=== PATIENT | female | born 1960 | race Caucasian/White ===

== ENCOUNTER → 2018-04-30 | Outpatient (CLI) | payer OTHER ==
[~2018-04-30] MED LIST: FLUT16SP19 NS; IBUP-56 PO; LEVO137T23 PO; LISI-351 PO; MULT-770 PO; NAPR220C12 PO; OMEG300C PO; mucinex
--- NOTE | 2018-05-01 16:42 | RADIOLOGY IMAGING REPORT ---
FACILITY: [facility] PATIENT NAME: VALERIE PINEDA : [id number] MR: [id number]: [id number] EXAM DATE: [id number] ORDERING PHYSICIAN: ARJUN SPENCER TECHNOLOGIST: Delilah Cruz PROCEDURE:BILATERAL DIGITAL SCREENING MAMMOGRAM WITH CAD ASSISTED INTERPRETATION & 3D TOMOSYNTHESIS COMPARISON:Prior mammograms 04/10/17, 03/18/16, 03/13/15, 03/07/14. INDICATIONS:SCREENING FINDINGS: A small amount of fibroglandular tissue is seen throughout the breasts. The parenchymal pattern has remained stable allowing for difference in mammographic technique & patient positioning. There is no evidence of malignant appearing mass, malignant appearing calcifications or other secondary sign of malignancy in either breast. DIAGNOSTIC CATEGORY 1--NEGATIVE. RECOMMENDATIONS: ROUTINE MAMMOGRAM AND CLINICAL EVALUATION. IMPRESSION: BIRADS 1: Negative. No significant abnormality is seen. Dictated by: Becky Segovia M.D. on 04/30/2018 at 16:44 Transcribed by: JUDY on 05/01/2018 at 9:01 Approved by: Becky Segovia M.D. on 05/01/2018 at 16:41 [facility]
== END ==
LOC: MAMO 03:42
PROVIDERS: ATTEND Physician Assistant
DX: Z12.31 Encounter for screening mammogram for malignant neoplasm of breast (principal)
CPT/HCPCS: 77063; 77067